=== PATIENT | male | born 1950 | race Caucasian/White ===

== ENCOUNTER 2016-10-05 08:30 | Inpatient (IN) ==
[2016-10-05] MEDS ORDERED: ASPIRIN PO STA (08:48)
--- NOTE | 2016-10-05 09:30 | EKG Report ---
Test Performed on : 10/05/2016 08:40:41 AM Test Reason : SOB Blood Pressure : / mmHG Vent. Rate : 066 BPM Atrial Rate : 066 BPM P-R Int : 210 ms QRS Dur : 084 ms QT Int : 424 ms P-R-T Axes : 091 016 025 degrees QTc Int : 444 ms Sinus rhythm. with 1st degree AV block. Junctional ST depression, probably normal Borderline ECG When compared with ECG of 26-MAR-2016 06:48, ST now depressed in Anterior leads Unconfirmed Result
[2016-10-05 09:37] LABS: MANUAL DIFF NEEDED? NO
[2016-10-05 09:45] LABS: BASO% 0.2 % (0.0-0.8); EOS# 0.13 X1000 (0.0-0.7); EOS% 2.8 % (0.0-10.0); HEMATOCRIT 35.4 % (42.0-52.0); HEMOGLOBIN 12.6 g/dL (14.0-18.0); LYMPH# 1.16 X1000 (1.2-3.4); LYMPH% 24.7 % (20.5-51.1); MCH 27.5 PG (27-31); MCHC 35.6 g/dL (33-37); MCV 77.3 FL (81-99); MONO# 0.43 X1000 (0.11-0.59); MONO% 9.2 % (1.7-9.3); MPV 10.2 FL (7.4-10.4); NEUT% 63.1 % (42.2-75.2); PLT 221 X1000 (130-400); RBC 4.58 XMIL (4.7-6.1)
[2016-10-05 09:52] LABS: INR 0.99; PROTIME 10.4 Seconds (9.2-11.7)
[2016-10-05 10:04] LABS: AGAP 12; ALBUMIN 3.7 g/dL (3.5-5.0); ALKALINE PHOSPHATASE 113 U/L (32-122); BUN 20 mg/dL (8-22); CALCIUM 9.7 mg/dL (8.8-10.2); CHLORIDE 99 mmol/L (98-107); CK PROFILE 43 U/L (24-204); COSMO 283; GOT 14 U/L (10-34); GPT 15 U/L (10-44); MAGNESIUM 1.7 mg/dL (1.5-2.7); POTASSIUM 3.1 mmol/L (3.5-5.1); SODIUM 140 mmol/L (136-145); TCO2 29 mmol/L (25-35); TOTAL BILIRUBIN 0.47 mg/dL (0.20-1.00); TOTAL PROTEIN 7.5 g/dL (6.3-8.3)
--- NOTE | 2016-10-05 10:42 | PROVIDER DOCUMENTATION ---
This chart was entered by Leah Roche Scribe, acting as scribe for Hansel Leiva MD. HPI-Chest Pain - General Chief Complaint: Dizziness Stated Complaint: DIZZINESS,SOB,NECK PAIN Time Seen by Provider: 10/05/16 08:48 Source: patient Allergies/Adverse Reactions: Patient Allergies Allergy/AdvReac Type Severity Reaction Status Date / Time No Known Allergies Allergy Verified 08/02/13 04:23 Home Medications: Home Medication List Medication Instructions Recorded Confirmed Last Taken Type Amlodipine Besylate 10 mg PO DAILY 10/05/16 10/05/16 10/05/16 08:00 History Aspirin EC 325 mg PO DAILY 10/05/16 10/05/16 10/05/16 08:00 History Carvedilol [Coreg] 12.5 mg PO BID 10/05/16 10/05/16 10/05/16 08:00 History Hydrocodone/Acetaminophen [[place] 1 each PO TID PRN 10/05/16 10/05/16 10/04/16 History 10-325 Tablet] Lisinopril/Hydrochlorothiazide 1 each PO BID 10/05/16 10/05/16 10/05/16 08:00 History [Lisinopril-Hctz 20-12.5 mg Tab] - History of Present Illness-CP Nature of Presenting Problem: Pt is 66 y/o M presents to the ED with L side chest pain. Pt states chest pain started one hr ago. Pt states hx of chest pain intermittently for the past year. Pt states SOB and dizziness. Pt states having heart cath in Mar. Pt states has a blockage. Pt states took an aspirin this am. Location: reports: other (L side) Chest Pain Radiation: reports: no radiation Quality of Pain: reports: aching Severity in ED: mild Onset/Duration: 1 hour ago Timing: improving Context/Activities at Onset: reports: light activity Modifying Factors: improves with: nothing Associated Symptoms: reports: dizziness, fatigue, shortness of breath. denies: abdominal pain, back pain, diaphoresis, edema, fever/chills, headache, heartburn , nausea, rash, swelling/lump in chest, syncope, vomiting, weakness Nitro Today/Relief: no nitro taken today Aspirin Treatment Today: 325 mg x 1, provided at home Prior Chest Pain/Cardiac Workup: reports: cardiac cath, stress test Similar Symptoms Previously?: Yes Recently Seen Here or By Another Healthcare Provider: No Review of Systems - Adult - REVIEW OF SYSTEMS - ADULT Constitutional: denies: chills, fever Eyes: denies: blurred vision, double vision Ears, Nose, Mouth & Throat: denies: ear pain, nose pain, throat pain Cardiovascular: reports: chest pain (L side). denies: heart murmur, irregular heart rate Respiratory: reports: shortness of breath. denies: cough, wheezing Gastrointestinal: denies: abdominal pain, diarrhea, nausea, vomiting Genitourinary: denies: dysuria, hematuria Musculoskeletal: reports: neck pain. denies: bone pain, joint pain Integumentary: denies: hives, itching, rash Neurological: reports: dizziness/vertigo (dizziness). denies: headache/ migraines, syncope Psychiatric: reports: no symptoms reported Endocrine: reports: no symptoms reported Hematologic/Lymphatic: reports: no symptoms reported Allergic/Immunologic: reports: no symptoms reported All Other Systems: Reviewed and Negative Past History - Adult - PAST MEDICAL HISTORY-ADULT Review of Records: reports: Nursing Assessment Review, Medications Reviewed, Social history reviewed & non-contributory. Major Childhood Illnesses: reports: denies history Cardiovascular: reports: CAD, CHF, HTN, hyperlipidemia Respiratory: reports: COPD, sleep apnea Gastrointestinal: reports: denies history Obstetrical/Gynecological: reports: denies history Genitourinary: reports: denies history Musculoskeletal: reports: denies history Neurological: reports: denies history Endocrine/Immune: reports: denies history Other Conditions: reports: denies history - PRIOR SURGERIES/PROCEDURES Surgical/Procedure History: reports: CABG, cholecystectomy, orthopedic ( extremity), back/neck - IMMUNIZATION STATUS Childhood Immunizations: See Nurse Assessment Flu Vaccine: See Nurse Assessment - FAMILY HISTORY Family History: reviewed, not pertinent - SOCIAL HISTORY Smoking: quit less than 1 year, cigarettes Provider spent 3-5 mins advising pt. on dangers of tobacco.: Discussed manners to quit use, and f/u contacts for add'l counseling. Substance Use: alcohol Alcohol Use Frequency: occasionally Number of drinks per typical drinking period:: 2 drinks Living Situation: family Physical Exam-General - PHYSICAL EXAM-ADULT Initial Vital Signs Reviewed: Yes - CONSTITUTIONAL General Appearance: appears well, alert, no apparent distress - EYES Eyes: PERRL/EOMI, pink conjunctivae - HEAD, EARS, NOSE, MOUTH & THROAT HENMT: normocephalic/atraumatic, moist mucous membranes, normal ENT inspection, TMs normal, pharynx normal - NECK Neck: non-tender, full range of motion, supple, normal inspection - RESPIRATORY Respiratory: chest non-tender, lungs clear, normal breath sounds, no pleuratic chest pain, no respiratory distress, no accessory muscle use - CARDIOVASCULAR Cardiovascular: normal peripheral pulses, regular rate, rhythm, no edema, no gallop, no JVD, no murmur - GASTROINTESTINAL (ABDOMEN) Abdominal Exam: normal bowel sounds, non tender, soft, no organomegaly, no pulsatile mass - LYMPHATIC Lymphatic: no adenopathy - MUSCULOSKELETAL Back Exam: normal inspection, no CVA tenderness, no vertebral tenderness Extremity: normal range of motion, non-tender, normal gait, normal inspection, no pedal edema, no calf tenderness, normal capillary refill - SKIN Integumentary: normal color, normal turgor, warm/dry - NEUROLOGIC Neurologic: grossly normal - PSYCHIATRIC Psych/Mental Status: normal mood/affect, oriented x 3 Progress - PLAN OF CARE/RESULTS Progress/Plan/Lab Results: Vital Signs - 8 hr 10/05/16 08:35 10/05/16 09:21 10/05/16 10:19 Temperature 97.5 F L Pulse Rate 69 68 60 Respiratory Rate 20 18 17 Blood Pressure 161/71 134/69 O2 Sat by Pulse Oximetry 100 95 95 10/05/16 10:30 Temperature Pulse Rate 59 L Respiratory Rate 17 Blood Pressure 132/79 O2 Sat by Pulse Oximetry 98 Laboratory Results - last 24 hr 10/05/16 10/05/16 10/05/16 09:25 09:25 09:25 WBC 4.69 L RBC 4.58 L Hgb 12.6 L Hct 35.4 L MCV 77.3 L MCH 27.5 MCHC 35.6 RDW Std Deviation 13.4 Plt Count 221 MPV 10.2 Immature Gran % (Auto) 0.0 Neut % (Auto) 63.1 Lymph % (Auto) 24.7 [place] % (Auto) 9.2 Eos % (Auto) 2.8 Baso % (Auto) 0.2 Immature Gran # (Auto) 0.00 Neut # (Auto) 2.96 Lymph # (Auto) 1.16 L [place] # (Auto) 0.43 Eos # (Auto) 0.13 Baso # (Auto) 0.01 PT INR PTT (Actin FS) D-Dimer 0.12 Sodium 140 Potassium 3.1 L Chloride 99 Carbon Dioxide 29 Anion Gap 12 BUN 20 Creatinine 1.1 Estimated GFR/1.73 m2 > 60 BUN/Creatinine Ratio 18 Glucose 114 H Calculated Osmolality 283 Calcium 9.7 Magnesium 1.7 Total Bilirubin 0.47 AST 14 ALT 15 Alkaline Phosphatase 113 Creatine Kinase 43 Troponin T Cxp-C-Cmdlhgdyrnu Pept Total Protein 7.5 Albumin 3.7 Globulin 3.8 Albumin/Globulin Ratio 1.0 10/05/16 10/05/16 10/05/16 09:25 09:25 09:25 WBC RBC Hgb Hct MCV MCH MCHC RDW Std Deviation Plt Count MPV Immature Gran % (Auto) Neut % (Auto) Lymph % (Auto) [place] % (Auto) Eos % (Auto) Baso % (Auto) Immature Gran # (Auto) Neut # (Auto) Lymph # (Auto) [place] # (Auto) Eos # (Auto) Baso # (Auto) PT 10.4 INR 0.99 PTT (Actin FS) 28.0 D-Dimer Sodium Potassium Chloride Carbon Dioxide Anion Gap BUN Creatinine Estimated GFR/1.73 m2 BUN/Creatinine Ratio Glucose Calculated Osmolality Calcium Magnesium Total Bilirubin AST ALT Alkaline Phosphatase Creatine Kinase Troponin T < 0.010 [id number]-Oofjyefcvyj Pept 124 Total Protein Albumin Globulin Albumin/Globulin Ratio Orders Category Date Time Status Cardiac Monitoring DIRECTED Care 10/05/16 08:49 Active Saline Loc NOW Care 10/05/16 08:49 Active CERVICAL SPINE COMPLETE [RAD] Stat Exams 10/05/16 08:48 Taken CHEST-PORTABLE [RAD] Stat Exams 10/05/16 08:48 Taken CBC WITH ELECTRONIC DIFF [HEME] Stat Lab 10/05/16 09:25 Completed CK PROFILE [SP CHEM] Stat Lab 10/05/16 09:25 Completed COMPREHENSIVE METABOLIC PANEL [CHEM] Stat Lab 10/05/16 09:25 Completed D-DIMER [CHEM] Stat Lab 10/05/16 09:25 Completed MAGNESIUM [CHEM] Stat Lab 10/05/16 09:25 Completed PRO B-NATRIURETIC PEPTIDE Stat Lab 10/05/16 09:25 Completed PROTIME WITH INR [COAG] Stat Lab 10/05/16 09:25 Completed PTT [COAG] Stat Lab 10/05/16 09:25 Completed TROPONIN T Stat Lab 10/05/16 09:25 Completed UA NIMS W/REFLEX CULT [URINALYSIS] Stat Lab 10/05/16 08:48 Uncollected URINE DRUG SCREEN Stat Lab 10/05/16 08:48 Uncollected Aspirin Med 10/05/16 08:48 Discontinued 325 mg PO STAT STA EKG [EKG] Stat Ther 10/05/16 08:34 Draft Result Diagrams: 10/05/16 09:25 10/05/16 09:25 - EKG 1 Time of EKG reading by physician:: 08:40 EKG Read and Signed by:: Hansel Leiva EKG Interpretation (*Must complete 3 of following elements*): Abnormal Rate: 66 Rhythm: sinus rhythm w/ 1st degree AV block Comments: junctional St depression, probably normal - XRAY 1 XRAY Study: Chest Impression: Normal XRAY Interpretation: negative 2 XRAY Study: C-Spine Impression: Abnormal XRAY Interpretation: DDD, nad - CONSULTS/PCP/HOSPITALIST Notification #1 *Consult/PCP/Hospitalist*: Consulted Dr. Humphries, suggested admit and will do cath today. Time Discussed: 10:39 Reason/Comments: Will admit to Dr. Ware. Departure - Departure Time of Disposition Decision: 10:41 DIAGNOSIS: Chest pain Qualifiers: Chest pain type: precordial pain Qualified Code(s): R07.2 - Precordial pain Disposition: ADMITTED INPATIENT 09 Certified Medical Emergency: Emergent Condition: Stable Referrals and Follow-Ups: Ivan Ware MD [Primary Care Provider] - - Critical Care Note This patient required my direct personal management.: No This chart was documented by the indicated scribe, (Leah Roche Scribe) and accurately reflects the services I performed and decisions made by me, Hansel Leiva MD, as attested by the provider's signature.
[2016-10-05] MEDS ORDERED: KLOR-CON PO ONE (10:44)
[2016-10-05] MEDS: LIPITOR PO SCH (10:45)
[2016-10-05 10:56] LABS: URINE CULTURE NEEDED? NO; URINE MICRO REVIEW NEEDED? NO; URINE SOURCE CLEAN CATCH
--- NOTE | 2016-10-05 10:57 | Diag Imaging Result Document ---
PROCEDURE NAME: CERVICAL SPINE COMPLETE - 10/05/2016 CERVICAL SPINE SERIES WITH OBLIQUES, 7 VIEWS: FINDINGS: There is severe degenerative disk disease with large anterior osteophytes, particularly at the C4-5 and 5-6 levels. The facets are fairly well maintained. There is no evidence of acute fracture or subluxation. There is no evidence of foraminal stenosis. IMPRESSION: Severe degenerative disk disease.
[2016-10-05 11:04] LABS: BILIRUBIN URINE NEGATIVE (NEGATIVE); BLOOD URINE NEGATIVE (NEGATIVE); COLOR YELLOW; GLUCOSE URINE NEGATIVE (NEGATIVE); LEUKOCYTES URINE NEGATIVE (NEGATIVE); NITRITE URINE NEGATIVE (NEGATIVE); PH URINE 5.5; PROTEIN URINE NEGATIVE (NEGATIVE); SP GRAVITY URINE 1.018; TURBIDITY URINE CLEAR (CLEAR); UR EPITHELIAL CELLS <10 /HPF (<10); URINE BACTERIA NEGATIVE /HPF; URINE RBC <10 /HPF (<10); URINE WBC <10 /HPF (<10); UROBILINOGEN URINE NORMAL (NORMAL)
--- NOTE | 2016-10-05 11:16 | CONSULTATION ---
DATE OF CONSULTATION: 10/05/2016 HISTORY OF PRESENT ILLNESS: Mr. Patel Quinones is a 66-year-old gentleman with known coronary artery disease, status post coronary artery bypass grafting in the past. Last cardiac catheterization 03/26/2016. He had been doing well, however for the last couple of weeks he has noticed increasing left-sided chest discomfort. Associated with that he has had chest discomfort radiating to the back of his neck. There are instances when he has pain in his upper part of his neck associated with dizziness. He also has noticed increasing shortness of breath. There are no palpitations. He has had episodes of dizziness. No sri syncope. There is no associated nausea or vomiting. REVIEW OF SYSTEMS: A fourteen-point review of systems was done.GI system: There is no history of nausea, vomiting, diarrhea. There is no history of hematemesis or melena. Central nervous system: No focal weakness to suggest a CVA or TIA. system: There is no dysuria or hematuria. Respiratory system: There is no history of cough, expectoration, hemoptysis. There is no history of fevers or chills. Endocrine system: Stable. PAST MEDICAL HISTORY: 1. Coronary artery disease, status post coronary artery bypass grafting. 2. Last cardiac catheterization 03/26/2016. Patent PILLAI to left anterior descending artery. Right coronary artery [place] was dominant with ectatic calcified 70% to 75% stenosis in the mid RCA. 3. The left main was normal. Left anterior descending occluded at the ostium. Circumflex was normal. 4. Normal left ventricular systolic function. 5. Left ankle fracture. 6. History of cholecystectomy and back surgery. SOCIAL HISTORY: He was a heavy smoker in the past. Quit 20 years back. He rarely drinks alcohol. Denies illicit drug abuse. ALLERGIES: He is not known to be allergic to any medications. MEDICATIONS: His home medications include: 1. Coreg 12.5 mg p.o. b.i.d. 2. Aspirin 81 mg a day. 3. Lisinopril/hydrochlorothiazide 20/12.5 one tablet twice a day. 4. Amlodipine 10. 5. Hydrocodone. PHYSICAL EXAMINATION: Vital Signs: Blood pressure was 132/79. Cardiovascular System: Normal jugular venous pressure. There is no thyromegaly. No carotid bruit. First and second heart sounds were heard. There is no S3 gallop. Respiratory System: Normal air entry. There is no crepitations or rhonchi. Abdomen: Soft, obese, nontender. There was no guarding or rigidity. Bowel sounds were heard. Central nervous system: Alert and was moving all 4 extremities. Extremities: Examination of extremities revealed no pedal edema. HEENT: Atraumatic, normocephalic. Pupils were equal and reacting to light. ASSESSMENT AND PLAN: 1. Mr. Patel Quinones is a 66-year-old gentleman with history of hypertension, coronary artery disease status post coronary artery bypass grafting, last underwent a cardiac catheterization in March 2016. He comes in with complaints of increasing episodes of chest discomfort associated with radiation to the base of his neck, and also has symptoms of dizziness and occasional shortness of breath. These symptoms have worsened recently. Patient has unstable angina. His laboratory examination revealed sodium 140, potassium 3.1, BUN 20 and creatinine 1.1. Cardiac enzymes were negative. The patient has symptoms of unstable angina given known right coronary artery significant disease which was not bypassed. Given this, I have recommended that he undergo a left heart catheterization. Risks, benefits, alternatives were explained. Patient will be set up to undergo a left heart catheterization shortly. The patient is willing to undergo the procedure. 2. Hypertension. Blood pressure is stable. I have not made any changes to his medications. He is on aspirin; we will continue the medication. 3. He is not on any lipid lowering agents. We would add Lipitor 40 mg to his medical regimen. Thank you for the consult. We will follow hospital course. cc: Oc Humphries MD
[2016-10-05 11:33] LABS: UR AMPHETAMINES QUAL NONE DETECTED (NONE DETECT); UR BARBITUATES QUAL NONE DETECTED (NONE DETECT); UR BENZODIAZEPIN QUAL NONE DETECTED (NONE DETECT); UR CANNABINOIDS QUAL NONE DETECTED (NONE DETECT); UR COCAINE QUAL NONE DETECTED (NONE DETECT); UR METHADONE QUAL NONE DETECTED (NONE DETECT); UR OPIATES QUAL PRESUMPTIVE POSITIVE (NONE DETECT); UR OXYCODONE QUAL NONE DETECTED (NONE DETECT); UR PCP QUAL NONE DETECTED (NONE DETECT)
--- NOTE | 2016-10-05 12:27 | Diag Imaging Result Document ---
PROCEDURE NAME: CHEST-PORTABLE - 10/05/2016 CHEST SINGLE VIEW: COMPARISON: 10/01/2016. FINDINGS: Sternal wires are present. The lungs are well expanded. The heart is not enlarged. The vessels are not distended. No pneumonia. No pleural effusions identified. No free air beneath the diaphragm. IMPRESSION: Negative chest.
[2016-10-05] MEDS ORDERED: NORCO-10 PO PRN (12:33)
[2016-10-05] MEDS ORDERED: DUONEB (A & A) INH PRN (12:42)
[2016-10-05] MEDS ORDERED: HEPARIN 1000 UNITS/NS 2,000 UNIT/1,000 ML IV.SOLN ONE (13:58)
[2016-10-05] MEDS ORDERED: MORPHINE ONE (14:31)
[2016-10-05] MEDS ORDERED: VERSED ONE (14:31)
[2016-10-05] MEDS ORDERED: NS 1,000 ML ONE (14:33)
[2016-10-05] MEDS ORDERED: CLAVE PUMP SET NO FILTER 12260 ONE (14:33)
[2016-10-05] MEDS ORDERED: CLAVE TWINSITE 32 IN 11959 ONE (14:33)
[2016-10-05] MEDS ORDERED: NS 1,000 ML IV SCH (16:00)
[2016-10-05] MEDS: DUONEB (A & A) INH PRN ×2 (16:20→22:42)
--- NOTE | 2016-10-05 16:48 | HISTORY AND PHYSICAL ---
HISTORY OF PRESENT ILLNESS: Mr. Quinones, who is a 66-year-old, white gentleman, a known case of COPD, who has mild coronary artery disease and hypertension as well as chronic severe back pain, came to the emergency room because of neck pain as well as severe retrosternal chest pain. This started last night and got worse this morning. He is a known case of coronary artery disease, he was followed by Dr. Brenda Ken here. Other details of personal past and family history are noncontributory except that he has past surgical history of 3 back surgeries. He had umbilical hernia repair. He had la eft ankle surgery. He also had a cholecystectomy performed, and coronary artery bypass surgery performed in 1998 probably, the details are noncontributory. He used to be a smoker. He used to smoke about 3 packs of cigarettes per day but 5 years he has not been smoking. He has not been drinking. ALLERGIES: He is not allergic to any medications. MEDICATIONS: Include amlodipine, aspirin, carvedilol, [place] 10, and lisinopril HCT 20-12.5. REVIEW OF SYSTEMS: Constitution: He is very weak. He is short of breath. Cardiopulmonary: He has some chest pain. GI: Negative. : Negative. Endocrine: Negative. Breasts: Negative. Neurological: Back of the neck hurting him constantly. PHYSICAL EXAMINATION: GENERAL: Patient is alert, oriented. VITAL SIGNS: Reveal temperature normal, pulse 61 per minute, respiratory rate 18 per minute, blood pressure 179/75. HEAD/EYES: Head normocephalic. Pupils PERRLA. Fundus examination could not be done. NECK: Supple. JVP normal. ENT: Examination unremarkable. NECK: There is no evidence of lymphadenopathy, thyroid enlargement. EXTREMITIES: No evidence of pedal edema, calf tenderness, anemia, cyanosis or clubbing. Pedal pulses well felt. BREAST EXAM: Normal. CHEST: Reveals midline scar from bypass surgery. LUNGS: Reveal occasional wheezing. HEART: Sounds are normal. No murmur, gallop or rub noted. ABDOMEN: Nondistended. Hernial orifices normal. Scar in the umbilical area. No guarding, rigidity, free fluid, masses, or organomegaly. Bowel sounds normal. RECTAL: Deferred. MACHINE ROUGH ROUNDER: Higher functions normal. Cranial nerves normal. Motor and sensory system examination unremarkable. Deep tendon reflexes normal. Plantars downgoing. Skull and spine examination normal for age. No cerebellar signs or signs of meningeal irritation. LOCOMOTOR EXAM: Unremarkable. SKIN EXAM: Unremarkable. CLINICAL IMPRESSION: Severe chest pain. Cardiac enzymes are normal. He has a history of coronary artery disease, hypertension, COPD, degenerative disk disease in the lumbar spine. His cardiac enzymes are negative. EKG does not show any acute changes at the present time. Once the pain is consistent will have a Cardiology consult on him. We will continue the current management. cc: Ivan Ware MD
[2016-10-05] MEDS ORDERED: MAALOX PLUS LIQUID PO PRN (18:01)
[2016-10-05] MEDS ORDERED: XANAX PO PRN (19:38)
[2016-10-05] MEDS ORDERED: TYLENOL PO PRN (19:38)
[2016-10-05] MEDS ORDERED: RESTORIL PO PRN (19:38)
[2016-10-05] MEDS ORDERED: PERCOCET-5 PO PRN (19:38)
[2016-10-05] MEDS ORDERED: NITROGLYCERIN SL PRN (19:50)
[2016-10-05] MEDS ORDERED: COREG PO SCH (21:00)
[2016-10-05] MEDS ORDERED: PRINZIDE 20/12.5MG PO SCH (21:00)
[2016-10-06] MEDS: LIPITOR PO SCH (08:21)
[2016-10-06] MEDS ORDERED: NORVASC PO SCH (09:00)
[2016-10-06] MEDS ORDERED: ASPIRIN EC PO SCH (09:00)
[2016-10-06 11:36] VITALS: BP 148/64
--- NOTE | 2016-10-06 12:44 | DISCHARGE SUMMARY ---
ADMISSION DATE: 10/05/2016 DISCHARGE DATE: 10/06/2016 PROGRESS NOTE/DISCHARGE SUMMARY: DIAGNOSES: 1. Coronary artery disease, status post bypass graft. 2. Hypertension. 3. Hyperlipidemia. 4. Chronic back pain. CONSULTS: Oc Humphries MD. PROCEDURES: Left heart catheterization to the right groin, stable. FINDINGS: RCA is about 70-75% stenosis in mid RCA, which is stable compared to the 03/26/2016. HISTORY AND HOSPITAL COURSE: In brief, he is a 66-year-old white gentleman with a known history of existing heart disease, and stable 75% lesion on the RCA. Was admitted to the hospital for chest pain. EKG was normal sinus, nothing acute. He was ruled out for VT by cardiac enzymes. He had hypokalemia, which was replaced. The patient has a left heart catheterization with stable findings relegated to medical management, adding the potassium and Lipitor. Dr. Ware has continued to follow up. I did discuss with Dr. Reyna, he needs a stress test as an outpatient because of this 75% lesion in the RCA. LABS: As follows: CBC: White cell count 4.6, hematocrit 35, platelets 221. SMA-7: Potassium 3.1. Cardiac enzymes, troponin were normal. Chest x-ray negative. DISCHARGE INSTRUCTIONS: Coreg 12.5 p.o. b.i.d., aspirin 325 daily, lisinopril 20/12.5 p.o. b.i.d., amlodipine 10 daily, potassium 20 mEq daily, Lipitor 40 daily, nitroglycerin as needed, [place] 10 t.i.d. as needed for pain. Follow up with Dr. Ware. Keep the LDL less than 100. Also outpatient stress test. cc: MD Ivan Denise MD Luis N. Villanueva, MD
--- NOTE | 2016-10-07 16:41 | CARDIAC CATH REPORT ---
PROCEDURE NAME: - PROCEDURE PERFORMED: 1. Left heart catheterization with selective coronary angiography. 2. Angiography of left internal mammary artery graft. 3. Left ventriculography. INDICATIONS: Recurrent chest pain. Patient with known coronary disease and previous coronary bypass surgery. ENTRY SITE: Right femoral artery. CATHETERS USED: 5-[place] JL4, JR4, angled pigtail, and KATHIA catheters. TECHNIQUE: After intravenous sedation with Versed and morphine, local anesthesia with lidocaine was applied over right femoral artery. Arterial access was established with placement of a 5- [place] sheath in the right femoral artery using modified Seldinger technique. Selective coronary angiography was performed, followed by angiography of left internal mammary artery graft. Thereafter, left heart catheterization and left ventriculography were performed. Upon completion of procedure, arterial sheath was removed from right femoral artery and hemostasis facilitated with manual pressure. Patient tolerated procedure without apparent complications. FINDINGS: Hemodynamics: Aortic pressure 148/68 with a mean of 97. Left ventricular pressure 160 over EDP of 13. COMMENTS: On hemodynamics there is no significant gradient across aortic valve demonstrated on pullback from the left ventricle. ANGIOGRAPHY: 1. Left ventriculogram: The left ventricle is normal size without wall motion abnormality evident on YOUNG projection. Estimated left ventricular ejection fraction is 60%. There is no significant mitral regurgitation. 2. Left main coronary: The left main coronary artery is free of significant stenosis. 3. Left anterior descending coronary artery: Left anterior descending coronary is occluded proximally. 4. Ramus intermedius branch: A ramus intermedius branch is present and bifurcates immediately after its origin. There is no significant stenosis in ramus intermedius branch. 5. Left circumflex coronary artery: The left circumflex coronary is free of significant coronary stenosis. 6. Right coronary artery: The dominant right coronary artery demonstrates a segment of moderate (60-70%) stenosis in the midportion of the vessel. 7. Left internal mammary artery graft to left anterior descending coronary. This graft is widely patent. CONCLUSIONS: 1. Normal left ventricular systolic function without wall motion abnormality evident on YOUNG projection. 2. Right-dominant coronary anatomy as described with possible occlusion of left anterior descending coronary and moderate segmental stenosis in the mid right coronary disease. 3. Patent left internal mammary artery graft to left anterior descending coronary. cc: MD Ivan Leos MD
== END 2016-10-06 12:48 | disposition home or self-care (01) ==
LOC: ED 08:30 → 3N 11:25 → EDIPHOLD 11:35 → 3S 13:13
PROVIDERS: ADMIT Internal Medicine; ATTEND Internal Medicine